=== PATIENT | female | born 1995 | race Caucasian/White ===

== ENCOUNTER 2017-06-13 22:36 | Emergency (ER) | payer OTHER ==
[~2017-06-13] VITALS: Ht 167.6 cm; Wt 105.2 kg
[~2017-06-13 22:36] MED LIST: VITAMINS
[2017-06-14 00:15] VITALS: BP 140/83
== END 2017-06-14 00:16 | disposition home or self-care (01) ==
LOC: EME 22:36
DX: I82.811 Embolism and thrombosis of superficial veins of right lower extremity (principal); Z79.3 Long term (current) use of hormonal contraceptives; Z88.0 Allergy status to penicillin
CPT/HCPCS: 93971; 99281; 99284

== ENCOUNTER 2017-07-18 03:37 | Inpatient (IN) | payer OTHER ==
[~2017-07-18] VITALS: Ht 167.6 cm; Wt 98.2 kg
[2017-07-18 04:43] LABS: HEMATOCRIT 37.9 % (36.0-46.0); MCH 27.9 PG (29.0-34.0); MCHC 32.2 G/DL (30.0-36.0); MCV 86.7 FL (83-99); MEAN PLAT.VOLUME 9.4 uM^3 (9.5-12.4); PLATELET COUNT 216 K/uL (156-360); RBC DIS.WIDTH-CV 12.4 % (11.8-14.6); RBC DIS.WIDTH-SD 39.3 % (39-53); RED BLOOD COUNT 4.37 M/uL (3.80-5.20); WHITE BLOOD COUNT 10.8 K/uL (4.1-10.2)
[2017-07-18 04:55] LABS: CHLORIDE 107 mEq/L (99-109); POTASSIUM 3.8 mEq/L (3.7-5.4); SODIUM 140 mEq/L (136-147)
[2017-07-18 04:56] LABS: ADD MIUA? NO; BILIRUBIN NEGATIVE; BLOOD NEGATIVE; COLOR YELLOW ((YELLOW)); GLUCOSE (STRIP) NEGATIVE; KETONES 5; LEUKOCYTES NEGATIVE; NITRITE NEGATIVE; PROTEIN (STRIP) NEGATIVE; SPECIFIC GRAVITY 1.018 (1.000-1.030); UCUL ADDED? NO; UROBILINOGEN 0.2 MG/DL (0.2-1.0)
[2017-07-18 04:57] LABS: GLUCOSE 87 mg/dL (70-99)
[2017-07-18 04:58] LABS: ANION GAP 10 MEQ/L (2-14)
[2017-07-18 05:01] LABS: GFR ESTIMATE (CALCULATED) > 59 mL/min/
[2017-07-18 05:02] LABS: UREA NITROGEN (BUN) 10 mg/dL (9-23)
[2017-07-18 05:09] LABS: QUANTITATIVE HCG < 4.0 MIU/ML
[2017-07-18 07:40] LABS: PROTHROMBIN TIME 11.1 SEC (10.2-12.9)
[2017-07-18 07:42] LABS: PTT 27.4 SEC (25-37)
[2017-07-18] MEDS ORDERED: birth control (07:59)
[2017-07-18] MEDS ORDERED: FLONASE16 G1 BOTH NARES (07:59)
[2017-07-18 08:48] LABS: ALKALINE PHOSPHATASE 83 IU/L (3-129)
[2017-07-18 08:51] LABS: DIRECT BILIRUBIN 0.4 mg/dL (0.0-0.3)
[2017-07-18 08:52] LABS: LIPASE 9 U/L (1.0-51.0)
[2017-07-18 09:41] VITALS: BP 142/85
[2017-07-18 11:37] LABS: TROP-I INTERPRETATION NEGATIVE; TROPONIN-I < 0.01 ng/mL (0.0-0.30)
[2017-07-18 13:23] LABS: INTER. NORMALIZED RATIO 1.1; PROTHROMBIN TIME 11.6 SEC (10.2-12.9)
[2017-07-18 14:17] LABS: TROP-I INTERPRETATION NEGATIVE; TROPONIN-I < 0.01 ng/mL (0.0-0.30)
[2017-07-18 17:04] VITALS: BP 115/70
[2017-07-18 21:30] LABS: TROP-I INTERPRETATION NEGATIVE; TROPONIN-I < 0.01 ng/mL (0.0-0.30)
[2017-07-19] VITALS: BP 117/78
[2017-07-19 07:37] VITALS: BP 139/88
[2017-07-19 15:23] VITALS: BP 138/72
[2017-07-20 00:06] VITALS: BP 124/80
[2017-07-20 06:36] LABS: HEMATOCRIT 33.4 % (36.0-46.0); MCH 29.4 PG (29.0-34.0); MCHC 33.2 G/DL (30.0-36.0); MCV 88.6 FL (83-99); MEAN PLAT.VOLUME 9.9 uM^3 (9.5-12.4); PLATELET COUNT 186 K/uL (156-360); RBC DIS.WIDTH-CV 12.5 % (11.8-14.6); RBC DIS.WIDTH-SD 40.6 % (39-53); RED BLOOD COUNT 3.77 M/uL (3.80-5.20); WHITE BLOOD COUNT 5.3 K/uL (4.1-10.2)
[2017-07-20 06:55] LABS: ANION GAP 7 MEQ/L (2-14); CHLORIDE 109 MEQ/L (99-109); GFR ESTIMATE (CALCULATED) > 59 mL/min/; GLUCOSE 80 mg/dL (70-99); POTASSIUM 4.1 MEQ/L (3.7-5.4); SAMPLE HEMOLYSIS CHECK 0; SAMPLE ICTERIC CHECK 0; SAMPLE LIPEMIA CHECK 0; SODIUM 140 MEQ/L (136-147); UREA NITROGEN (BUN) 6 mg/dL (9-23)
[2017-07-20] MEDS ORDERED: IBUPROFEN400 MG PO (07:39)
[2017-07-20] MEDS ORDERED: PERCOCET 5/31 TABLET PO (07:40)
[2017-07-20 07:57] VITALS: BP 141/85
[2017-07-20] MEDS ORDERED: XARELTO20 MG PO (08:50)
[2017-07-20] MEDS ORDERED: XARELTO15 MG PO (08:50)
[2017-07-26 16:33] LABS: ANTITHROMBIN III ACTIVITY+ 86 % activi (80-120); APCR to FVL REFLEX Has been added (()); DRVVT Mixing Study Interp Not Indicated (()); PROTEIN C FUNCTIONAL ACTIVITY+ 104 % (70-180); PTT-LA >200 sec (<=40); PTT-LA Reflex Has been added (()); Protein S, Free 101 % normal (50-147); Thrombosis Consult Level Limited (()); dRVVT Screen 39 sec (<=45)
[2017-07-27 08:21] LABS: THROMBIN TIME+ >100 (H) sec
== END 2017-07-20 11:37 | disposition home or self-care (01) | DRG 176 ==
LOC: EME 03:37 → EDOF 07:36 → ENRESERV 07:45 → 5SOUTH 09:12
PROVIDERS: Emergency Medicine; Internal Medicine
DX: I26.99 Other pulmonary embolism without acute cor pulmonale (principal); T38.4X5A Adverse effect of oral contraceptives, initial encounter; I82.431 Acute embolism and thrombosis of right popliteal vein; I82.441 Acute embolism and thrombosis of right tibial vein; K76.9 Liver disease, unspecified; J45.909 Unspecified asthma, uncomplicated; E66.9 Obesity, unspecified; Z68.37 Body mass index [BMI] 37.0-37.9, adult; Z86.72 Personal history of thrombophlebitis
CPT/HCPCS: 71020; 71275; 80048; 80076; 81003; 81240 90; 83090 90; 83690; 83880; 84484; 84702; 85027; 85240 90; 85300 90; 85303 90; 85305 90; 85306 90; 85307 90; 85379; 85610; 85613 90; 85670 90; 85730; 85730 90; 86146 90; 86147 90; 93005; 93306; 93970; 99281; 99285; J1170; J2270; J2405; J7030